=== PATIENT | male | born 1980 | race Caucasian/White ===

== ENCOUNTER 2024-02-15 06:27 | Day surgery (SDC) | payer OTHER, SELFPAY ==
[2024-02-15 09:07] VITALS: BMI 46.7
[2024-02-15 09:08] VITALS: BMI 46.7
[2024-02-15 09:09] VITALS: BP 146/92
[2024-02-15 09:22] LABS: Glucose - Point of Care 147 mg/dl (70-99)
[2024-02-15 10:20] VITALS: BP 148/89
[2024-02-15 10:35] VITALS: BP 145/96
== END 2024-02-15 10:55 | disposition home or self-care (01) ==
LOC: SDS 06:27
PROVIDERS: ATTENDING PHYSICIAN Internal Medicine Gastroenterology; FAMILY PHYSICIAN Internal Medicine
DX: K50.10 Crohn's disease of large intestine without complications (principal); K52.9 Noninfective gastroenteritis and colitis, unspecified; K57.30 Diverticulosis of large intestine without perforation or abscess without bleeding; R60.9 Edema, unspecified; K60.3 Anal fistula; Z98.0 Intestinal bypass and anastomosis status
CPT/HCPCS: 45380; 88305; 82962

== ENCOUNTER 2024-11-11 19:09 | Inpatient (IN) | payer BC, SELFPAY ==
[2024-11-11 11:56] VITALS: BP 202/113
[2024-11-11 12:19] VITALS: BP 173/87
[2024-11-11 13:22] VITALS: BMI 45.4
[2024-11-11 13:41] LABS: Urine Albumin 2+ (Neg - Trace); Urine Bilirubin Negative (Negative); Urine Character Clear (Clear); Urine Color Yellow; Urine Glucose 4+ (Negative); Urine Ketone 1+ (Negative); Urine Leukocyte 1+ (Negative); Urine Nitrite Negative (Negative); Urine Occult Blood Negative (Negative); Urine Specific Gravity 1.015 (<1.030); Urine Urobilinogen 1+ (Neg - 1+)
[2024-11-11 13:48] VITALS: BP 170/88
[2024-11-11] MEDS: DILAUDID 0.5 MG IV ×3 (13:48→21:59)
[2024-11-11 13:49] LABS: % Basophils 0.7 % (0-2); % Eosinophils 1.9 % (0-6); % Immature Granulocytes 0.4 % (0-0.5); % Lymphocytes 12.4 % (20.5-51.1); % Monocytes 6.7 % (1.7-9.3); % Neutrophils 77.9 % (42.2-75.2); Absolute Eosinophils 0.1 10^3/uL (0-0.7); Absolute Lymphocytes 0.3 10^3/uL (1.2-3.4); Absolute Monocytes 0.2 10^3/uL (0.1-0.6); Absolute Neutrophils 2.1 10^3/uL (1.4-6.5); Hematocrit 41.2 % (39.0-52.0); Hemoglobin 13.8 g/dL (13.0-18.0); Mean Corp Hgb Conc. 33.5 g/dL (33.0-37.0); Mean Corpuscular Hgb 29.5 pg (27.0-31.0); Mean Platelet Volume 9.3 fL (7.4-10.4); Nucleated Red Blood Cells % 0 % (-); Platelet Count 130 10^3/uL (130-400); Red Blood Cell Count 4.68 10^6/uL (4.70-6.10); Red Cell Dist. Width 13.3 % (11.5-14.5); White Blood Cell Count 2.7 10^3/uL (4.8-10.8)
[2024-11-11 13:54] LABS: Lactic Acid 1.2 mmol/L (0.7-2.0)
[2024-11-11 13:56] LABS: ALT (SGPT) 112 U/L (0-50); AST (SGOT) 132 U/L (17-59); Albumin 3.4 g/dl (3.5-5.0); Alkaline Phosphatase 81 U/L (38-126); Blood Urea Nitrogen 7 mg/dl (9-20); Calcium 8.6 mg/dl (8.4-10.2); Carbon Dioxide 27 mmol/L (22-30); Chloride 105 mmol/L (98-107); Estimated Creatinine Clearance > 125 ml/min; Glucose 289 mg/dl (70-99); Potassium 3.5 mmol/L (3.5-5.1); Sodium 136 mmol/L (135-145); Total Bilirubin 0.7 mg/dl (0.2-1.3); Total Protein 6.4 g/dl (6.3-8.2); eGFR > 60.00
[2024-11-11 14:00] VITALS: BP 157/84
[2024-11-11 14:00] LABS: COVID-19 Antigen Negative (Negative)
[2024-11-11 14:16] LABS: Lipase 61 U/L (23-300)
[2024-11-11 14:44] LABS: Urine Granular Cast 0-2 /LPF (0); Urine Hyaline Cast 0-2 /LPF (0-2); Urine Mucus Moderate; Urine Squamous Cell >30 /LPF (Few)
[2024-11-11 14:45] LABS: Urine Bacteria Moderate (Negative); Urine Red Blood Cell None Seen /HPF (0-2); Urine White Cell 0-2 /HPF (0-5)
--- NOTE | 2024-11-11 14:54 | ED.GENMED ---
History of Present Illness
General
Chief Complaint: Fever
Time Seen by Provider: 11/11/24 12:46
History of Present Illness
History of Present Illness:
44-year-old male with history of Crohn's disease on Humira presents to the emergency department for evaluation of fevers and shaking chills for the past 2 days. He states that late last week he developed rectal pain and discharge and was started on
Cipro and Flagyl by his prison officer. He was taking his medications and has been on this for 5 days however developed fever and shaking chills last night. He reports rectal and abdominal pain. No chest pain or shortness of breath. No URI
symptoms or coughing. Denies dysuria
Review of Systems
Review of Systems
Allergies reviewed?: Yes
All Other Systems: ROS reviewed and negative except as documented in HPI and ROS
Phy Exam
Physical Exam
Physical Exam:
GEN: Well appearing, NAD, WDWN
HEENT: Oral mucosa moist, no scleral icterus
Cardiac: Regular rate
Lung: No respiratory distress, no tachypnea
Rectal: No obvious perianal abscess or discharge
MSK: No gross deformity or injuries
Skin: Good color, no pallor or jaundice, no rashes
Neuro: AO x3, moves all extremities freely
Psych: Calm, cooperative
Sepsis
Sepsis Screening
Sepsis Assessment: Sepsis Ruled Out
Sepsis Screen
Sepsis Screen: Sepsis Ruled Out
Date: 11/11/24
Time: 14:56
Course
Orders/Labs/Results
Orders:
Orders
11/11/24 12:56
CT Abd/Pel (IV only)-[facility] only Urgent
Comment:
Reason For Exam: fever, Crohn's, anal discharge
11/11/24 13:23
COVID-19 Antigen Urgent
Source: Nasal Swab
CRP [C-Reactive Protein] Urgent
Complete Blood Count/With Diff Urgent
Comprehensive Metabolic Panel Urgent
Lactic Acid Q4H
Comment: CANCEL 2nd LACTIC ACID IF 1st LACTIC ACID IS LESS THAN 2
Lipase Urgent
Comment: ADD ON
Blood Culture Q30M
JENNIE Source: Blood/Venous
Specimen Description:
Blood Culture Q30M
JENNIE Source: Blood/Venous
Specimen Description:
11/11/24 13:30
Urinalysis Reflex To Culture Urgent
Date Specimen was Collected: 11/11/24
Time Specimen was Collected: 13:29
Urine Microscopic Reflex Cult Urgent
Urine Culture Urgent
JENNIE Source: U
Specimen Description:
Date Specimen was Collected: 11/11/24
Time Specimen was Collected: 13:29
11/11/24 13:46
HYDROmorphone [Dilaudid] 0.5 mg .ROUTE .STK-MED ONE
HYDROmorphone [Dilaudid] 0.5 mg IV NOW STA
11/11/24 14:05
Add On- LAB Urgent
Tests Added?: lipase
11/11/24 17:00
Lactic Acid Q4H
Comment: CANCEL 2nd LACTIC ACID IF 1st LACTIC ACID IS LESS THAN 2
Abnormal Lab Results
11/11/24 11/11/24
13:23 13:30
WBC 2.7 L 10^3/uL
(4.8-10.8)
RBC 4.68 L 10^6/uL
(4.70-6.10)
Absolute Lymphs (auto) 0.3 L 10^3/uL
(1.2-3.4)
Neutrophils % 77.9 H %
(42.2-75.2)
Lymphocytes % 12.4 L %
(20.5-51.1)
BUN 7 L mg/dl
(9-20)
Glucose 289 H mg/dl
(70-99)
AST 132 H U/L
(17-59)
ALT 112 H U/L
(0-50)
C-Reactive Protein 23.10 H mg/L
(0.0-10.00)
Albumin 3.4 L g/dl
(3.5-5.0)
Urine Ketones 1+ A
(Negative)
Leukocyte Esterase Rfl 1+ A
(Negative)
Urine Bacteria (Reflex) Moderate A
(Negative)
Urine Glucose 4+ A
(Negative)
Urine Albumin (Reflex) 2+ A
(Neg - Trace)
11/11/24 13:23
11/11/24 13:23
Vital Signs
Initial and Last Documented VS:
Initial Vital Signs
Temp Pulse Resp BP Pulse Ox
98.1 F 86 18 202/113 98
11/11/24 11:56 11/11/24 11:56 11/11/24 11:56 11/11/24 11:56 11/11/24 11:56
Last Documented Vital Signs
Temp Pulse Resp BP Pulse Ox
98.1 F 73 18 157/84 98
11/11/24 11:56 11/11/24 14:30 11/11/24 12:45 11/11/24 14:00 11/11/24 11:56
MDM/Problems Addressed
MDM/Problems Addressed:
Labs are unremarkable, cultures pending. Anticipate imaging will reveal some complication that will require admission for IV antibiotics. Signed out to Manuel Patterson PA-C pending imaging
*Critical Care Note
Total Time (30-74mins, 75-104mins- exclusive of procedures): Not Applicable
ED Attending Note
-
Portions of this chart may have been created with voice recognition software.� Occasional wrong word or��sound alike� substitutions may have occurred due to the inherent limitations of voice recognition software.
Discharge Plan
Departure
Prescriptions:
No Action
losartan 50 mg Tablet
50 mg PO DAILY
amlodipine 10 mg Tablet
metformin 1,000 mg Tablet
1,000 mg PO BID
Stelara 90 mg/mL Syringe
90 mg SC Q4W
Sutab 1.479-0.188- 0.225 gram Tablet
PO
Referrals:
Rodger Perez MD [Family Provider, Internal Medicine]
Interventions
Interventions:
*Risk Screen - Suicide Last Done: 11/11/24 11:56
*General Assessment Last Done: 11/11/24 12:49
*Neglect/Abuse Screening Last Done: 11/11/24 11:56
*ED- Fall Risk Assessment Last Done: 11/11/24 12:49
*ED COVID-19 Vaccine History Last Done: 11/11/24 12:49
ED- Neurological Assessment Last Done: 11/11/24 12:49
ED-Skin Assessment Last Done: 11/11/24 12:49
Discharge Date and Time
Print Language: TELUGU
[2024-11-11 15:00] VITALS: BP 162/75
--- NOTE | 2024-11-11 16:14 | ED.GENMED ---
History of Present Illness
General
Chief Complaint: Fever
Time Seen by Provider: 11/11/24 12:46
Course
Orders/Labs/Results
Orders:
Orders
11/11/24 12:56
CT Abd/Pel (IV only)-[facility] only Urgent
Comment:
Reason For Exam: fever, Crohn's, anal discharge
11/11/24 13:23
COVID-19 Antigen Urgent
Source: Nasal Swab
CRP [C-Reactive Protein] Urgent
Complete Blood Count/With Diff Urgent
Comprehensive Metabolic Panel Urgent
Lactic Acid Q4H
Comment: CANCEL 2nd LACTIC ACID IF 1st LACTIC ACID IS LESS THAN 2
Lipase Urgent
Comment: ADD ON
Blood Culture Q30M
JENNIE Source: Blood/Venous
Specimen Description:
Blood Culture Q30M
JENNIE Source: Blood/Venous
Specimen Description:
11/11/24 13:30
Urinalysis Reflex To Culture Urgent
Date Specimen was Collected: 11/11/24
Time Specimen was Collected: 13:29
Urine Microscopic Reflex Cult Urgent
Urine Culture Urgent
JENNIE Source: U
Specimen Description:
Date Specimen was Collected: 11/11/24
Time Specimen was Collected: 13:29
11/11/24 13:46
HYDROmorphone [Dilaudid] 0.5 mg .ROUTE .STK-MED ONE
HYDROmorphone [Dilaudid] 0.5 mg IV NOW STA
11/11/24 14:05
Add On- LAB Urgent
Tests Added?: lipase
11/11/24 Dinner
Clear Liquid
At Your Request: Full Participation
Does patient need a safe tray?: No
11/11/24 15:57
HYDROmorphone [Dilaudid] 0.5 mg IV NOW STA
11/11/24 17:09
Code Status As Directed
Resuscitation Status: Full Code
Notify MD As Directed
Notify physician if: Bridge Admission orders placed.
Notify attending physician:
-- upon arrival to unit
OR
-- when patient is identified as an ED hold
Pneumatic Compression Sleeves As Directed
Type: Knee high
Vital Signs As Directed
Frequency: Per unit guidelines
O2 Therapy [RESP] Routine
Titrate/Wean O2 to maintain O2 sat greater than (%): 92
11/11/24 17:10
DX Deep Vein Thrombosis Video Routine
11/11/24 18:54
Admit/Transfer Patient As Directed
Co-Sign Provider:
Level of Care: Inpatient admission
Assign to:: Medical/Surgical
Physician / Group: Hospitalists
Diagnosis: Lower GI bleed
Reason for Hospitalization: Lower GI bleed
Expected length of stay greater than two midnights?: Yes
ELOS- Estimated Length of Stay in days: 2
I certify the patient meets the requirements for IP care: Yes
PRN Pain Medication Management As Directed
May give lesser potent ordered pain med per pt: Yes
preference::
Protocol:: Medication orders for pain may be administered in a
manner that supports deferring to patient preference
when the pt is:
- Requesting an ordered lesser potent pain medication.
Least to most potent pain medications are defined
as: acetaminophen < NSAID < tramadol < opioids
(morphine, oxycodone, hydromorphone).
- Requesting a lesser dose of the same medication IF
ORDERED.
- Requesting a less intrusive route of administration
if both routes are prescribed by the provider (PO <
IV).
11/11/24 19:06
GASTROINTESTINAL CONSULT Routine
Consulting Provider: Teresa Thomas
Was physician already notified: Yes
11/11/24 19:15
0.9% Sodium Chloride 1000 ml [Nss] 1,000 ml IV 100 mls/hr
11/11/24 20:09
Acetaminophen [Tylenol] 650 mg PO TIDPRN PRN mild pain/fever
11/12/24 08:00
Amlodipine [Norvasc] 10 mg PO DAILY
Losartan [Cozaar] 25 mg PO DAILY
Abnormal Lab Results
11/11/24 11/11/24
13:23 13:30
WBC 2.7 L 10^3/uL
(4.8-10.8)
RBC 4.68 L 10^6/uL
(4.70-6.10)
Absolute Lymphs (auto) 0.3 L 10^3/uL
(1.2-3.4)
Neutrophils % 77.9 H %
(42.2-75.2)
Lymphocytes % 12.4 L %
(20.5-51.1)
BUN 7 L mg/dl
(9-20)
Glucose 289 H mg/dl
(70-99)
AST 132 H U/L
(17-59)
ALT 112 H U/L
(0-50)
C-Reactive Protein 23.10 H mg/L
(0.0-10.00)
Albumin 3.4 L g/dl
(3.5-5.0)
Urine Ketones 1+ A
(Negative)
Leukocyte Esterase Rfl 1+ A
(Negative)
Urine Bacteria (Reflex) Moderate A
(Negative)
Urine Glucose 4+ A
(Negative)
Urine Albumin (Reflex) 2+ A
(Neg - Trace)
11/11/24 13:23
11/11/24 13:23
Vital Signs
Initial and Last Documented VS:
Initial Vital Signs
Temp Pulse Resp BP Pulse Ox
98.1 F 86 18 202/113 98
11/11/24 11:56 11/11/24 11:56 11/11/24 11:56 11/11/24 11:56 11/11/24 11:56
Last Documented Vital Signs
Temp Pulse Resp BP Pulse Ox
98.4 F 85 16 162/75 98
11/11/24 20:25 11/11/24 20:25 11/11/24 20:25 11/11/24 15:00 11/11/24 20:25
Patient Management
Discussion with other providers: Hospitalist
Escalation/DeEscalation of care consider admission/obs:
3 PM - Patient received in signout pending CT scan results. CT scan ultimately shows no acute abnormalities. There was an incidental finding of a 1.7 cm indeterminate left adrenal nodule which will need further evaluation as an outpatient.
Patient provided with a printout of this report. Given his immunocompromise status combined with the fevers and continued pain despite IV pain medication administration we will plan to admit to hospitalist service. GI team can be consulted as
needed. Hospitalist team accepts for continued evaluation and treatment
ED Attending Note
-
Portions of this chart may have been created with voice recognition software.� Occasional wrong word or��sound alike� substitutions may have occurred due to the inherent limitations of voice recognition software.
Discharge Plan
Departure
Patient Disposition: Admit
Date of Disposition: 11/11/24
Time of Disposition: 16:14
Presentation/result/management discussed w/ accepting MD/DO: Hospitalist
Discharge Problem:
Fever, Abdominal pain
Interventions
Interventions:
*Risk Screen - Suicide Last Done: 11/11/24 11:56
*General Assessment Last Done: 11/11/24 12:49
*Neglect/Abuse Screening Last Done: 11/11/24 11:56
*ED- Fall Risk Assessment Last Done: 11/11/24 12:49
*ED COVID-19 Vaccine History Last Done: 11/11/24 12:49
*Nursing Disposition Last Done: 11/11/24 19:57
ED- Neurological Assessment Last Done: 11/11/24 12:49
ED-Skin Assessment Last Done: 11/11/24 12:49
Discharge Date and Time
Discharge Date/Time: 11/11/24 19:57
--- NOTE | 2024-11-11 19:10 | HPS.HSE ---
Addendum entered and electronically signed by Maryam Corey MD 11/11/24 21:10:
I personally performed a history and physical exam of the patient and discussed management with the resident. I reviewed the resident's note and agree with the documented findings and plan of care HPI/CC.
GENERAL: well developed, well nourished, obese male in no apparent distress
HEENT:NC/AT--moist mucus membranes
HEART: regular rate and rhythm, +S1, +S2
LUNGS : clear to auscultation bilaterally
ABDOM: soft, nontender, nondistended, + bowel sounds
EXT: no cyanosis, clubbing, or edema--with venous stasis changes
NEUROLOGIC: grossly intact
: perianal area inside buttocks with small lesions, wet appearing and clear ooze
Abdominal pain/fever with Lower GI bleeding (not septic)--History of Crohn's--possibly due to acute flare of Crohn's, infection, fistula/fissures, diverticulitis and less likely hemorrhoids or gastroenteritis--ADMIT--CRP elevated but not
significantly--consult GI--change cipro/flagyl to IV zosyn--IVF, clears--need CT scan with ORAL contrast in AM--stool studies including C. diff--hold stelara
Leukopenia--WBC�2.7--immunosuppressed from stelara--trend WBC
Elevated transaminases--Likely due to combination of fatty liver plus medication induced�Stelara/metformin--follow
hyperglycemia--pt on metformin for prediabetes--check HGB O7O--izdl need diet modification--hold metformin due to IV contrast given for CT scan
Essential HTN -- cont norvasc and losartan
bilateral LE edema--possibly from high dose norvasc--follow
DVT proph-�SCDs
code status-Full code
Original Note:
Family Physician
-
Family Physician: Rodger Perez
Chief Complaint
-
Bleeding per rectum, rectal pain
History of Present Illness
44-year-old male with past medical history of hypertension, prediabetes, Crohn's (diagnosed in 2018) with 2 perianal surgeries for fistulas, bowel resection for diverticulitis presents with bleeding per rectum and rectal pain, fevers/chills from
the past 2 days. Patient reports that he was having some purulent drainage from the anus and bleeding, abdominal pain since 6 days and he saw Dr. Rivera as outpatient, who started him on metronidazole and ciprofloxacin. Bleeding and pain has
improved, but the patient had fevers in the past 2 days, associated with intermittent nausea but no vomiting. Patient has been taking Tylenol for fevers. No history of diarrhea/constipation, sick contacts, change in the dietary habits, no chest
pain/sob, dysuria. Reports having mild headache early in the morning today.
Medical History
Past Medical History
Past Medical History: Reports HTN
Additional Past Medical History:
Prediabetes
Past Surgical History: Reports Bowel Resection
Additional Past Surgical History:
Hernia repair, bowel resection for diverticulitis,
Social History
Tobacco: Non-smoker
Alcohol: Occasional
Drug: Other (THC drops)
Personal:
Living: With Family
Employment: Employed
Family History
Family History: Other (Mother-diverticulitis, IBS maternal grandmother-diverticulitis)
Allergies / Home Medications
Allergies reflects when Allergies were last updated in [facility].
Home Medications with original date entered in [facility]
Allergy/Medication List:
Allergies
Allergy/AdvReac Type Severity Reaction Status Date / Time
morphine Allergy Intermediate Hives Verified 02/15/24 09:01
Home Medications
amlodipine 10 mg tablet 10 mg PO DAILY 02/15/24
ustekinumab 90 mg/mL subcutaneous syringe (Stelara) 90 mg SC Q4W 02/15/24
acetaminophen 325 mg tablet (Tylenol) 650 mg PO TIDPRN PRN mild pain/fever 11/11/24
ciprofloxacin HCl 500 mg tablet 500 mg PO Q12H 11/11/24
losartan 25 mg tablet 25 mg PO DAILY 11/11/24
metronidazole 500 mg tablet 500 mg PO TID 11/11/24
Metformin 500 mg, once daily
Review of Systems
-
A 12 point ROS was completed and negative except as noted: Yes
Physical Exam
Vital Signs
Vital Signs
Temp Pulse Resp BP Pulse Ox
98.1 F 80 18 162/75 98
11/11/24 11:56 11/11/24 16:45 11/11/24 12:45 11/11/24 15:00 11/11/24 11:56
Physical Exam
General: Morbidly Obese
HEENT: NormoCephalic, Anicteric, Moist mucous membranes and Atraumatic
Respiratory: Clear
Cardiac: S1/S2 and Regular Rhythm
GI: Soft, Non Tender, Normal Bowel Sounds and Other (Midline vertical scar from prior surgery)
Rectal: Hem Positive and Other (Discharge)
Musculoskeletal: Other (Lower extremity discoloration bilaterally, nonpitting edema)
Skin: Warm and Dry
Neuro: Awake, Alert, Oriented and AO x 3
Psych: Calm
Laboratory Results
-
11/11/24 13:23
11/11/24 13:23
Laboratory Results
Lactic Acid Cancelled 11/11/24 17:00
Total Bilirubin 0.7 mg/dl (0.2-1.3) 11/11/24 13:23
AST 132 U/L (17-59) H 11/11/24 13:23
ALT 112 U/L (0-50) H 11/11/24 13:23
Alkaline Phosphatase 81 U/L (38-126) 11/11/24 13:23
Lipase 61 U/L (23-300) 11/11/24 13:23
Impression/Plan
-
IMPRESSION:
44-year-old male with history of Crohn's disease presenting with bleeding and discharge per rectum.
PLAN:
#Lower GI bleeding
#History of fevers
#History of Crohn's
Likely due to acute flare of Crohn's or infection from the fistulous tract or anal fissures or hemorrhoids or diverticulitis or gastroenteritis (although less likely on differential)
Patient does not appear septic clinically, also sepsis criteria not met at presentation
Patient is afebrile, WBC�2.7
Start IV Zosyn
Start IV fluids
Start on clear liquids
Will trend hemoglobin, currently at 13.8
GI consult
Will do CT with peroral contrast
Will check stool studies
Will check C. difficile
Hold Stelara
Hold NSAIDs
#Leukopenia
WBC�2.7
Likely related to chronic immunosuppression since diagnosis of Crohn's (was on Humira before, currently on Stelara)
Will hold Stelara for now
Will trend WBC, monitor fever curve
Will monitor clinically
If required, will consider ID consult
#Elevated transaminases
Likely due to fatty liver or medication induced�Stelara/metformin
CT evidence of hepatosplenomegaly due to fatty liver
Will monitor for now
#Elevated blood glucose
Patient has history of prediabetes, currently on metformin
Will hold metformin
We will start SSI
Will check HbA1c
Diet�full liquids
DVT prophylaxis�SCDs
Full code
[2024-11-11 20:25] VITALS: BMI 46.0
[2024-11-11 21:27] LABS: Glucose - Point of Care 170 mg/dl (70-99)
[2024-11-11 21:30] VITALS: BP 185/100
[2024-11-11] MEDS: ZOSYN 50 IV (21:38)
[2024-11-11] MEDS: NSS 1000 IV (21:38)
[2024-11-12] VITALS (14 sets, daily range): BP systolic 126–190; BP diastolic 72–100
[2024-11-12] MEDS: ZOSYN IV (04:42)
--- NOTE | 2024-11-12 06:37 | CON.GI ---
Addendum entered and electronically signed by Teresa Thomas MD 11/12/24 15:46:
D/w Dr. Nguyen outpatient doc
Addendum entered and electronically signed by Teresa Thomas MD 11/12/24 15:45:
Goal level 10 for IFX with fisutlizing dz
Addendum entered and electronically signed by Teresa Thomas MD 11/12/24 15:42:
The patient was seen and examined by me independently in collaboration with the nurse practitioner.
Past medical history/social history/medications/allergies/family history reviewed.
Lab data and imaging data reviewed.
44-year-old male distant history of diverticulitis with colon resection and diverting ileostomy in 2008 with reversal and ultimately diagnosed with Crohn's in 2018 with fistulizing disease with seton placement x [address] Wolf at [facility]. He was placed on Humira initially but developed antibodies and then was switched to Stelara. He required dose escalation of Stelara and he did notice increased symptoms a few days prior to Stelara. His most recent colonoscopy with
Miguel was January 2024 which showed perianal edema and erythema, small fistulous opening, no obvious abscess on perianal exam, patent anastomosis colocolonic, diverticulosis, inflammation from the rectum to sigmoid anastomosis moderate in
severity improved from prior, pathology showed benign lymphoid aggregates. No active inflammation seen.
Patient called on Sunday with diffuse bleeding. He reached out to Dr. Rivera who placed him on Cipro and Flagyl. Patient felt better and the bleeding decreased however on Sunday night he developed a fever which persisted on Sunday up to 102.
He states his bowel movements are regular with no diarrhea, no abdominal pain. He also has drainage to the area.
This seems to be related to his underlying perianal disease, possible abscess. I was present for Dr. Ruff's rectal exam and he did not appreciate any abscesses. He did have a fistulous opening. He underwent a CT scan here which showed fatty
liver, adrenal nodule, left renal calculus, superficial fatty soft tissue of the anus and perineum suggesting likely inflammatory infectious process. Plan was to get an MR pelvis for further evaluation but unfortunately patient due to body habitus
was unable to get this done.
Discussed with Dr. Ruff. Plan to do exam under anesthesia today. Could consider EUS in future if necessary with Dr. Clark or Dr. Arreguin.
Continue antibiotics. Ultimately, I think the patient would benefit from switching to Remicade which I discussed with him today. Remicade is the only biologic with data for fistulizing disease. Goal would be levels of 10. He does have a history
of antibodies and options include combination therapy with amino modulator and peeling off after 6 to 12 months versus close monitoring of levels and antibodies. The potential risks of Remicade (infliximab) therapy were discussed with the patient
including risks of infection including tuberculosis, fungal infections like histoplasmosis, and others.
We additionally reviewed the risks of infusion reactions including immediate ones that might include shortness of breath and hives, and that these are usually treated with slowing down the rate of infusion and giving more IV fluid; sometimes,
antihistamines are used, and rarely, corticosteroids are needed. Delayed infusion reactions with fevers and joint aches, and/or rashes were also discussed occurring 1-10 days after an infusion.
Additionally, the potential risk for changes in blood counts and liver chemistries were mentioned, as were the uncommon multiple sclerosis-like reactions, approximately 90% of which resolve after cessation of the drug.
Finally, the risk of blood cancers including lymphoma and rare lymphomas such as hepatosplenic T-cell lymphomas were discussed.
I will order hepatitis studies, QuantiFERON TPMT enzyme in preparation for [facility] outpatient. Patient follows with Dr. Nguyen.
Seems to be more perianal dz then Crohn's flare driving picture and with fevers would hold at steroids at this point.
Original Note:
Consultation
-
Date/Time Consultation Requested: 11/11/241929
Date/Time Consultation Performed: 11/12/24 0800
Requesting Provider: Kayleen Spivey MD
Performing Provider: RONI Troncoso, Joanne Thomas MD
Reason for Consultation: GI bleed
Medical History
Chief Complaint / HPI
History of Present Illness:
Pt is a 44yo with hx HTN, NIDDM, diverticulitis with prior diversion ileostomy and resection 2008 prior hernia repair and crohn's disease diagnosed 2018 with perianal fistulizing disease and prior setons x [address] Wolf at [place]. He has been
on Humira with development of antibodies in past but started Stelara about 2 years ago with dose escalation a few months ago to every 4 weeks. He has been in touch with Dr. Nguyen over last week with increased rectal pain, discharge and
bleeding from fistula and was started on antibiotics with Cipro and Flagyl. He initially was only taking Cipro then added Flagyl but still with fever and rectal pain and directed to ER. On admission noted with WBC 2.7, hbg 13.8, hct 41.2,
platelets 130, glucose 289, bili 0.7, AST 132, ALT 112, alk phos 81, albumin 3.4, CRP 23.1, and moderate bacteria on UA. Ct was completed with [facility] with fatty liver, non obst renal calculus, Unremarkable appendix. Limited evaluation of intestinal
tract, particularly in light of patient history of Crohn's disease, without oral contrast. No intestinal obstruction, free air or gross focal area intestinal inflammatory changes. On the basis of this study, acute inflammatory process of the
intestinal tract cannot be excluded. On admission pt started on IV Zosyn .
At this time pt related larger volume of blood last week less this week with otherwise formed stools. He otherwise admits to rectal pain worse with exam. He has some nausea without vomiting on the weekend. He denies odynophagia, dysphagia,
GERD, abdominal pain, or black stools.
01/2024- colonoscopy Wendy - good prep - Perianal edema/erythema, with small fistulous opening, no obvious abscess. found on perianal exam.
- Patent end-to-side colo-colonic anastomosis, characterized by healthy appearing mucosa- Diverticulosis in the descending colon.
- Inflammation was found from the rectum to the sigmoid colon anastomosis. This was moderate in
severity, improved compared to previous examinations. Biopsied.
Past Medical History
Past Medical History: HTN, NIDDM and Other (crohns)
Past Surgical History: Bowel Resection (for diverticular disease in 2009 with diversion ostomy then reversal), Orthopedic (back surgery x 3 with hx fall) and Other (hernia repair, prior seton placement with Dr. Wolf at [facility] )
Social History
Tobacco: Non-Smoker
Alcohol: Occasional (admits to 6-9 beers at times )
Drug: None
Personal:
Living: With Family
Employment: Employed
Family History
Family History: Other (mother diverticulitis, IBS, GM diverticulitis )
Allergies / Home Medications
Allergy/AdvReac Type Severity Reaction Status Date / Time
morphine Allergy Intermediate Hives Verified 02/15/24 09:01
�Medication �Instructions �Recorded
amlodipine 10 mg tablet 10 mg PO DAILY 02/15/24
ustekinumab 90 mg/mL subcutaneous 90 mg SC Q4W 02/15/24
syringe (Stelara)
acetaminophen 325 mg tablet 650 mg PO TIDPRN PRN mild 11/11/24
(Tylenol) pain/fever
ciprofloxacin HCl 500 mg tablet 500 mg PO Q12H 11/11/24
losartan 25 mg tablet 25 mg PO DAILY 11/11/24
metronidazole 500 mg tablet 500 mg PO TID 11/11/24
Review of Systems
-
History Source: Patient
Constitutional: Reports Fever
EENT: Reports No Symptoms
Respiratory: Reports No Symptoms
Cardiac: Reports No Symptoms
Abdomen/GI: Reports Bloody Stools and Other (rectal pain with leakage and increased drainage of red blood )
: Reports No Symptoms
Musculoskeletal: Reports Edema
Skin: Reports No Symptoms
Neurological: Reports Weakness
Endocrine: Reports No Symptoms
Hematologic/Lymphatic: Reports Bleeding
Vital Signs
Temp Pulse Resp BP Pulse Ox
98.4 F 85 16 178/92 98
11/11/24 20:25 11/11/24 20:25 11/11/24 20:25 11/12/24 06:10 11/11/24 20:25
Physical Exam
Exam
General: Well Developed, Well Nourished and No Apparent Distress
HEENT: Normocephalic and Anicteric
Respiratory: Clear
Cardiac: Regular Rhythm
GI: Soft, Non Tender, Non Distended and Other (mid abdominal scar )
Rectal: Other (multiple fistulas tract and scarring. On trace with drainage and other area of purple discoloration -- ? collection of fluid, internal exam not completed with some pain on exam )
Musculoskeletal: No Clubbing and No Cyanosis
Skin: Warm and Dry
Neuro: Awake, Alert and AO x 3
Psych: Calm
Results
WBC 2.7 10^3/uL (4.8-10.8) L 11/11/24 13:23
Hgb 13.8 g/dL (13.0-18.0) 11/11/24 13:23
Hct 41.2 % (39.0-52.0) 11/11/24 13:23
MCV 88.0 fL (80.0-94.0) 11/11/24 13:23
Plt Count 130 10^3/uL (130-400) 11/11/24 13:23
Absolute Neuts (auto) 2.1 10^3/uL (1.4-6.5) 11/11/24 13:23
Sodium 136 mmol/L (135-145) 11/11/24 13:23
Potassium 3.5 mmol/L (3.5-5.1) 11/11/24 13:23
Chloride 105 mmol/L (98-107) 11/11/24 13:23
Carbon Dioxide 27 mmol/L (22-30) 11/11/24 13:23
BUN 7 mg/dl (9-20) L 11/11/24 13:23
Creatinine 0.7 mg/dL (0.7-1.3) 11/11/24 13:23
Calcium 8.6 mg/dl (8.4-10.2) 11/11/24 13:23
Total Bilirubin 0.7 mg/dl (0.2-1.3) 11/11/24 13:23
AST 132 U/L (17-59) H 11/11/24 13:23
ALT 112 U/L (0-50) H 11/11/24 13:23
Alkaline Phosphatase 81 U/L (38-126) 11/11/24 13:23
Lipase 61 U/L (23-300) 11/11/24 13:23
Diagnostic Image Results:
11/11/24 CT Abd/Pel (IV only)-DH only
Hepatosplenomegaly with diffuse fatty liver.
Small nonobstructing left renal calculus. Symmetric renal excretion.
Approximate 1.7 cm INDETERMINATE left adrenal nodule of approximately 60 Hounsfield unit density. Is there a prior outside CT to confirm stability? If not, Abdomen CT without and with intravenous contrast or Abdominal MRI recommended for more
complete evaluation as an malignant lesion cannot be excluded.
01/2024- ning - good prep - Perianal edema/erythema, with small fistulous opening, no obvious abscess. found on perianal exam.
- Patent end-to-side colo-colonic anastomosis, characterized by healthy appearing mucosa- Diverticulosis in the descending colon.
- Inflammation was found from the rectum to the sigmoid colon anastomosis. This was moderate in
severity, improved compared to previous examinations. Biopsied.
Prior GI Procedures:
EGD: none on chart
Colonoscopy:
01/2024- [facility] - good prep - Perianal edema/erythema, with small fistulous opening, no obvious abscess. found on perianal exam.
- Patent end-to-side colo-colonic anastomosis, characterized by healthy appearing mucosa- Diverticulosis in the descending colon.
- Inflammation was found from the rectum to the sigmoid colon anastomosis. This was moderate in
severity, improved compared to previous examinations. Biopsied.
Assessment / Plan
-
Pt is a 44yo with hx HTN, NIDDM, diverticulitis with prior diversion ileostomy and resection 2008 prior hernia repair and crohn's disease diagnosed 2018 with perianal fistulizing disease and prior setons x [address] Wolf at [place]. He has been
on Humira with development of antibodies in past but started Stelara about 2 years ago with dose escalation a few months ago to every 4 weeks. He has been in touch with Dr. Nguyen over last week with increased rectal pain, discharge and
bleeding from fistula and was started on antibiotics with Cipro and Flagyl. He initially was only taking Cipro then added Flagyl but still with fever and rectal pain and directed to ER. On admission noted with WBC 2.7, hbg 13.8, hct 41.2,
platelets 130, glucose 289, bili 0.7, AST 132, ALT 112, alk phos 81, albumin 3.4, CRP 23.1, and moderate bacteria on UA. Ct was completed with [facility] with fatty liver, non obst renal calculus, Unremarkable appendix. Limited evaluation of intestinal
tract, particularly in light of patient history of Crohn's disease, without oral contrast. No intestinal obstruction, free air or gross focal area intestinal inflammatory changes. On the basis of this study, acute inflammatory process of the
intestinal tract cannot be excluded. On admission pt started on IV Zosyn .
01/2024- colonoscopy Wendy - good prep - Perianal edema/erythema, with small fistulous opening, no obvious abscess. found on perianal exam.
- Patent end-to-side colo-colonic anastomosis, characterized by healthy appearing mucosa- Diverticulosis in the descending colon.
- Inflammation was found from the rectum to the sigmoid colon anastomosis. This was moderate in
severity, improved compared to previous examinations. Biopsied.
-concern for rectal abscess with fever, rectal pain and increased drainage with area of discoloration and fluid on exam
-crohns with known fistulizing disease
-hx prior Dr. Wolf evherminio and seton placement 2018 ?
-mild CRP elevation prior to admission
-mild LFT elevation
-hx ileostomy with reversal for diverticular disease 2008
-hx ETOH use
-LE edema
-hypoalbuminemia
-mild thrombocytopenia
-hepatosplenomegaly/fatty liver on imaging
other med problems:
-HTN
-NIDDM
-diverticulosis
-prior hernia repair
PLAN:
etiology of symptoms with concern for underlying abscess with hx perianal fistulizing disease, vs other
rectal exam with noted several fistulas and scarring, one area with drainage and some discoloration with palpable fluid
CRP 23.1 will add fecal dihn
check stool studies
change CT to MR pelvis
cont IV Zosyn
clear diet
for colorectal consult to see if further intervention needed
pt has been in Stelara may need to consider switch to Remicade as reviewed with Dr. Nguyen
Pt counseled on ETOH use
trend LFT's- may be fatty liver, infection vs other related -- may have some underlying liver disease with mild thrombocytopenia, hypoalbuminemia, and LE edema
OP follow up for fatty liver
reviewed with hospitalist team via tiger text
-
-
Thank you for consultation and allowing me to participate in the patient's care. Please call the national sales consultant GI physician during the after hours with any questions or concerns.
[2024-11-12] MEDS: DILAUDID 0.5 MG IV ×4 (07:09→20:45)
[2024-11-12 07:24] LABS: Glucose - Point of Care 167 mg/dl (70-99)
[2024-11-12] MEDS: NSS 1000 IV ×2 (08:02→18:19)
[2024-11-12] MEDS: NOVOLOG FLEXPEN-LOW RESISTANCE 1 UNITS SC ×3 (08:02→18:23)
[2024-11-12] MEDS: COZAAR 25 MG PO (08:04)
[2024-11-12] MEDS: NORVASC 10 MG PO (08:04)
[2024-11-12] MEDS: ZOSYN 50 IV ×3 (08:05→20:42)
[2024-11-12 08:45] LABS: % Basophils 0.6 % (0-2); % Eosinophils 4.9 % (0-6); % Immature Granulocytes 0.3 % (0-0.5); % Lymphocytes 16.2 % (20.5-51.1); % Monocytes 11.6 % (1.7-9.3); % Neutrophils 66.4 % (42.2-75.2); Absolute Eosinophils 0.2 10^3/uL (0-0.7); Absolute Lymphocytes 0.5 10^3/uL (1.2-3.4); Absolute Monocytes 0.4 10^3/uL (0.1-0.6); Absolute Neutrophils 2.2 10^3/uL (1.4-6.5); Hematocrit 40.3 % (39.0-52.0); Hemoglobin 13.6 g/dL (13.0-18.0); Mean Corp Hgb Conc. 33.7 g/dL (33.0-37.0); Mean Corpuscular Hgb 29.4 pg (27.0-31.0); Mean Platelet Volume 9.3 fL (7.4-10.4); Nucleated Red Blood Cells % 0 % (-); Platelet Count 128 10^3/uL (130-400); Red Blood Cell Count 4.63 10^6/uL (4.70-6.10); Red Cell Dist. Width 13.2 % (11.5-14.5); White Blood Cell Count 3.3 10^3/uL (4.8-10.8)
[2024-11-12] MEDS: TYLENOL 650 MG PO (09:53)
[2024-11-12 10:53] LABS: ALT (SGPT) 115 U/L (0-50); AST (SGOT) 135 U/L (17-59); Albumin 3.2 g/dl (3.5-5.0); Alkaline Phosphatase 71 U/L (38-126); Blood Urea Nitrogen 6 mg/dl (9-20); Calcium 8.3 mg/dl (8.4-10.2); Carbon Dioxide 31 mmol/L (22-30); Chloride 103 mmol/L (98-107); Estimated Creatinine Clearance > 125 ml/min; Glucose 173 mg/dl (70-99); Potassium 3.5 mmol/L (3.5-5.1); Sodium 136 mmol/L (135-145); Total Bilirubin 0.7 mg/dl (0.2-1.3); Total Protein 6.4 g/dl (6.3-8.2); eGFR > 60.00
[2024-11-12 12:10] LABS: Glycohemoglobin (HgbA1c) 9.2 % (4.0-5.6)
[2024-11-12 12:42] LABS: Glucose - Point of Care 175 mg/dl (70-99)
--- NOTE | 2024-11-12 14:13 | W.PN.HOSP.TC ---
Addendum entered and electronically signed by Maryam Corey MD 11/12/24 19:15:
I saw and evaluated the patient independently. I reviewed the resident�s note and agree with findings and plan as documented by Dr. Spivey.
GENERAL: well developed, well nourished, obese male in no apparent distress--seen post op
HEENT:NC/AT--moist mucus membranes
HEART: regular rate and rhythm, +S1, +S2
LUNGS : clear to auscultation bilaterally
ABDOM: soft, nontender, nondistended, + bowel sounds
EXT: no cyanosis, clubbing, or edema--with venous stasis changes
NEUROLOGIC: grossly intact
: not examined post op
Abdominal pain/fever with Lower GI bleeding (not septic)--History of Crohn's--possibly due to acute flare of Crohn's with fistula--CRP elevated but not significantly--apprec GI/CRS--change cipro/flagyl to IV zosyn--IVF, clears--CT scan with ORAL
contrast changed to MRI per GI but too large for the MRI machine--taken to OR by CRS and had posterior anal ulcer debridement of perianal fistula--having formed stools so stool studies including C. diff no longer needed--hold stelara
Leukopenia--WBC�2.7--immunosuppressed from stelara--trend WBC
Elevated transaminases--Likely due to combination of fatty liver plus medication induced�Stelara/metformin--follow
type 2 DM with hyperglycemia--pt on metformin-- HGB A1C 9.2 (not prediabetes)--will need diet modification--hold metformin due to IV contrast given for CT scan--restart after 48H from IV contrast
Essential HTN -- cont norvasc and losartan
bilateral LE edema--possibly from high dose norvasc--follow
DVT proph-�SCDs
code status-Full code
Original Note:
Today's Communication/Plan
-
Colorectal plan exam under anesthesia for perianal disease
Continue IV Zosyn
Continue clears
Assessment / Plan
Assessment / Plan
IMPRESSION:
44-year-old male with history of Crohn's disease presenting with bleeding and discharge per rectum.
PLAN:
#Lower GI bleeding
#History of fevers
#History of Crohn's
Likely due to infection from the fistulous tract/Crohn's perianal disease with abscess or acute flare of Crohn's
gastroenteritis >>ruled out as patient had a formed stool >> will cancel stool studies
Patient does not appear septic clinically, also sepsis criteria not met at presentation
Patient is afebrile, WBC�2.7 >>3.3
Continue IV Zosyn
Continue IV fluids
Continue clear liquids
GI consulted
Plan for MRI pelvis for further evaluation, patient was not able to get this done due to body habitus
Case discussed with colorectal, as per GI�plan on examining under anesthesia.
Also consider starting on Remicade, biologic for fistulizing Crohn's disease.
Check hepatitis panel, QuantiFERON, TPMT enzyme
Will hold off on steroids for now (Crohn's flareup unlikely, as per colorectal)
Will trend hemoglobin, currently at 13.6
Hold Stelara
Hold NSAIDs
#Leukopenia
WBC�3.3
Likely related to chronic immunosuppression since diagnosis of Crohn's (was on Humira before, currently on Stelara)
Will hold Stelara for now
Will trend WBC, monitor fever curve
Will monitor clinically
If required, will consider ID consult
#Elevated transaminases
Likely due to fatty liver or medication induced�Stelara/metformin
CT evidence of hepatosplenomegaly due to fatty liver
Will monitor for now
#Elevated blood glucose
Patient has history of prediabetes, currently on metformin
Will hold metformin
We will start SSI
Will check HbA1c
#Essential hypertension
Continue amlodipine
Continue losartan
#Left adrenal nodule
Approximate 1.7 cm INDETERMINATE left adrenal nodule of approximately 60 Hounsfield unit density. Is there a prior outside CT to confirm stability? If not, Abdomen CT without and with intravenous contrast or Abdominal MRI recommended for more
complete evaluation as an malignant lesion cannot be excluded.
Advised to follow-up as outpatient
DVT prophylaxis�Lovenox subcu
Full code
Anticipated Discharge: 24 - 48 hours
Subjective/Interval History
-
Date of Service: November 12, 2024
Patient had a bowel movement�formed stool with streaks of blood. Does not report any nausea/vomiting. Still has rectal pain/pressure. No overnight fever/chills. No abdominal pain. Patient is able to tolerate clears.
Objective Data
-
Labs:
Laboratory Results
11/12/24
08:18
WBC 3.3 L
Hgb 13.6
Hct 40.3
Plt Count 128 L
Sodium 136
Potassium 3.5
Chloride 103
Carbon Dioxide 31 H
BUN 6 L
Creatinine 0.6 L
Glucose 173 H
Calcium 8.3 L
Total Bilirubin 0.7
AST 135 H
ALT 115 H
Alkaline Phosphatase 71
Vital Signs:
Vital Signs
Temp Pulse Resp BP Pulse Ox
98.1 F 77 16 135/84 96
11/12/24 07:20 11/12/24 08:04 11/12/24 07:20 11/12/24 08:04 11/12/24 07:20
I&O
11/11/24 11/12/24 11/13/24
06:59 06:59 06:59
Intake Total 360 / 360
Balance 360 / 360
Review of Systems
-
All other systems: Reviewed and negative (Except as mentioned above)
Physical Exam
-
General: No Apparent Distress and Morbidly Obese
HEENT: Normocephalic and Atraumatic
Respiratory: Clear to Auscultation
Cardiac: Regular Rhythm and S1/S2
GI: Soft, Nontender, Nondistended, Normal Bowel Sounds and Other (Vertical midline incisional scar)
Skin: Warm and Dry
Neuro: Awake, Alert, Oriented, AO x 3 and Nonfocal/Grossly Intact
Psych: Calm
--- NOTE | 2024-11-12 15:19 | CON.CRS ---
Consultation
-
Date/Time Consultation Requested: 11/12/2024,
Date/Time Consultation Performed: 11/12/2024,
Requesting Provider: Teresa Thomas MD
Performing Provider: Subhash Ruff MD
Reason for Consultation: perianal abscess
Medical History
-
Chief Complaint: rectal bleeding
History of Present Illness:
44 yo male with a past medical history of diverticulitis s/p resection with ileostomy and then s/p reversal, crohns disease with multiple fistulas (prior setons x [address] Wolf and then at [facility]), presents with rectal bleeding. He has been on
Humira in the past and then subsequently Sterlara. Recently he has had increased rectal pain, discharge and bleeding. He was started on flagyl and cipro. Given increasing rectal pain and fevers, he came to the ER. On admission, his WBC was 2.7. CT
A/P showed superficial fatty soft tissues of the anus/perineum, especially on the right suggesting an inflammatory/infectious process. Consider MRI for more complete evaluation as a tiny abscess cannot be entirely excluded. He was started on IV
antibiotics. An MRI was attempted today, but due to body habitus, it was unable to be performed. His last colonoscopy was by Dr. Nguyen in 2023 which showed perianal edema/erythema, with small fistulous opening, no obvious abscess. found on
perianal exam. Patent end-to-side colo-colonic anastomosis, characterized by healthy appearing mucosa.Diverticulosis in the descending colon. Inflammation was found from the rectum to the sigmoid colon anastamosis. This was moderate in severity,
improved compared to previous examinations. Given the CT findings, we have been consulted for further surgical opinion.
Past Medical History
Past Medical History: HTN, IDDM and Other (sleep apnea, crohns disease)
Past Surgical History: Other (diverticulitis with prior diversion ileostomy and resection 2008 and resection, prior seton placement with Dr. Wolf at [place] and then subsequently with Dr. Murray at [facility])
Social History
Tobacco: Non-Smoker
Alcohol: Occasional
Drug: None
Personal:
Living: With Family
Family History
Family History: Reviewed & Not Pertinent
Allergies / Home Medications
Allergy/AdvReac Type Severity Reaction Status Date / Time
morphine Allergy Intermediate Hives Verified 02/15/24 09:01
�Medication �Instructions �Recorded �Confirmed �Type
amlodipine 10 mg tablet 10 mg PO DAILY Blood Pressure 02/15/24 11/11/24 History
ustekinumab 90 mg/mL subcutaneous 90 mg SC Q4W Autoimmune Disorder 02/15/24 11/11/24 History
syringe (Stelara)
acetaminophen 325 mg tablet 650 mg PO TIDPRN PRN mild 11/11/24 11/11/24 History
(Tylenol) pain/fever
ciprofloxacin HCl 500 mg tablet 500 mg PO Q12H Infection 11/11/24 11/11/24 History
losartan 25 mg tablet 25 mg PO DAILY Blood Pressure 11/11/24 11/11/24 History
metronidazole 500 mg tablet 500 mg PO TID Infection 11/11/24 11/11/24 History
Review of Systems
-
History Source: Patient
Abdomen/GI: Bloody Stools and Other (rectal pain)
A 10 point review of systems was completed, and was negative except as per HPI.
Physical Exam
Vital Signs
Temp 98.1 F 11/12/24 07:20
Pulse 77 11/12/24 08:04
Resp Rate 16 11/12/24 07:20
Blood pressure 135/84 11/12/24 08:04
SaO2 96 11/12/24 07:20
11/11/24 11/12/24 11/13/24
06:59 06:59 06:59
Actual Weight 171.203 kg
Body Mass Index (BMI) 46.0
Lab Results / Allergies
11/12/24 08:18
11/12/24 08:18
WBC 3.3 10^3/uL (4.8-10.8) L 11/12/24 08:18
Hgb 13.6 g/dL (13.0-18.0) 11/12/24 08:18
Hct 40.3 % (39.0-52.0) 11/12/24 08:18
Plt Count 128 10^3/uL (130-400) L 11/12/24 08:18
Abs Immat Gran (auto) 0.0 10^3/uL (0-0.05) 11/12/24 08:18
Neutrophils % 66.4 % (42.2-75.2) 11/12/24 08:18
Allergy/AdvReac Type Severity Reaction Status Date / Time
morphine Allergy Intermediate Hives Verified 02/15/24 09:01
Physical Exam
General: Well Developed, Well Nourished and No Apparent Distress
Rectal: Other (multiple fistula tracks and scaring, left anterior pain on palpation)
Neuro: AO x 3
Data Reviewed
-
CT Scan: Image Personally Visualized and interpreted, Report Reviewed by me and Discussed with Patient
Labs: Labs Reviewed by me, Discussed with Physician and Discussed with Patient
Old Records: Requested
Assessment / Plan
-
Assessment: 44yo male with known crohns disease on stelara presents with rectal pain and bleeding, with possible perianal abscess
Plan:
-Unable to perform MRI due to body habitus
-Will take to the OR today for an EUA to further evaluate the perianal region
-Continue IV antibiotics
-Immunosuppressives per GI
-NPO for OR
--- NOTE | 2024-11-12 17:16 | CM ---
Patient at surgery when CM attempted to visit x2. CM will return to complete assessment.
[2024-11-12 17:26] LABS: Glucose - Point of Care 171 mg/dl (70-99)
--- NOTE | 2024-11-12 17:27 | W.IMMPOSTOP ---
Surgical Immed Post Op Note
-
Primary Surgeon: Subhash Ruff MD
Assisting Surgeon: None
Pre-op Diagnosis: Anal pain, perianal Crohn's
Post-op Diagnosis: Posterior anal ulcer, transsphincteric perianal fistula, perianal Crohn's
Procedure Performed: Exam under anesthesia, debridement of perianal fistula
Anesthesia Type: Sedation with local
Specimen / Cultures: None
Estimated Blood Loss: 25 mL
Complications: None
Operative Findings: Externally, evidence of chronic inflammation along the gluteal cleft with cobblestoning of the skin, as well as small bulla, but no erythema or pus; external opening identified in the left posterior perianal region about 6 cm
from the anal verge; inflammation seen within the anal canal posteriorly associated with friability and a posterior anal ulcer with some exposed internal sphincter muscle; with minimal manipulation, oozing of blood was seen; probed the external
opening which tracked towards the posterior midline, but unable to pass the probe through an internal opening; injected hydrogen peroxide and none was seen emanating from an internal opening in the posterior or lateral quadrants; no pus or erythema
was seen associated with the fistula; using a 25-gauge finder needle, the right ischiorectal space was aspirated and no pus was identified; debrided the external opening for improved drainage and copiously irrigated
--- NOTE | 2024-11-12 17:55 | OR.RPT ---
Operative Report
Operative Report
DATE OF OPERATION: 11/12/2024
SURGEON: Subhash Ruff MD
PREOPERATIVE DIAGNOSIS: Anal pain, history of perianal Crohn's
POSTOPERATIVE DIAGNOSIS: Posterior anal ulcer, transsphincteric perianal fistula, history of perianal Crohn's
OPERATION: Exam under anesthesia, debridement of perianal fistula
ASSISTANTS:
1. None
ANESTHESIA: Sedation with local
ESTIMATED BLOOD LOSS: 25 mL
FINDINGS:
1. External opening in the left posterior perianal region, about 6 cm from the anal verge; tracking towards the posterior midline; no purulent drainage or erythema; no connection with an internal opening identified
2. Posterior anal ulcer associated with inflammation, friability and easy bleeding
SPECIMENS:
1. None
DRAINS: None
COMPLICATIONS: None
INDICATIONS: The patient is a 44-year-old male with 7-year history of Crohn's disease in the colon and anus. He was first diagnosed in 2018 and required seton placements, now removed. He was noted to have worsening symptoms recently on Stelara
and the frequency was increased. However, he developed perianal pain associated with bloody drainage about 1 week ago. He was started on ciprofloxacin and Flagyl. Despite this, he spiked a fever of 102 three days ago and was instructed to go to
the emergency room. Here, his CRP was elevated to 23.[address] scan showed peritoneal stranding, most significant in the right perineum. An MRI was recommended but due to the patient's body habitus, this was unable to be completed. Therefore, the
patient was recommended to have surgery to examine for any abscess or possible fistula. The operation was discussed with the patient in detail, including the risks, benefits and alternatives. Risks described included, but not limited to bleeding,
infection, urinary retention, damage to nearby structures such as the anal sphincter, fecal incontinence, missed abscess or fistula, recurrent infection and anesthetic risks. The patient understood and agreed to proceed. The consent was signed and
placed in the chart.
PROCEDURE IN DETAIL: The patient was taken to the operating room. Sequential compression devices were placed bilaterally. The patient was placed on the operating table in supine position. Sedation was commenced without complication. The patient
was placed in lithotomy position with arms secured to the arm boards and pressure points padded. A seatbelt was placed across the chest. The buttocks were taped apart. The perineum was shaved, prepped and draped in the usual fashion. A time-out
was performed verifying the correct patient, procedure, operative site, positioning, and special equipment.
Local anesthesia used was a mixture of 60 mL of 0.25% Marcaine with epinephrine and 0.6 mg of dexamethasone. 40 mL was injected perianally at the beginning of the case. The anorectal exam was performed assessing all four quadrants of the anal canal
using Hill-Mckeon retractors in progressively increasing size. Externally, there was evidence of chronic inflammation associated with the gluteal skin. There was ridging and cobblestoning, but no erythema or drainage. There were 2-3 small
fluid-filled bulla, but these decompressed easily and had no erythema or purulence associated with them. There was an external opening noted in the left posterior perianal region, about 6 cm from the anal verge. On anoscopy, there was evidence of
chronic inflammation and scarring within the anal canal, but the anal canal was able to accommodate the medium Hill-Mckeon retractor. There was no inflammation noted in the distal rectum. There was inflammation noted in the posterior quadrant of
the anal canal associated with an ulcer. There was visible internal sphincter associated with this ulcer. There was no purulent drainage identified. Upon palpating the perianal region, there was no fluctuance noted. There were no masses.
Using Orellana fistula probes, the external opening was probed. There was clearly tracking under the skin towards the posterior midline. There was some tracking into the ischiorectal space. There was no abscess cavity and no expression of
purulence. The fistula did track towards the posterior anal ulcer. However, I was unable to pass a probe through an internal opening. I injected dilute hydrogen peroxide into the external opening to assess if there was a patent internal opening.
I did this while viewing the posterior, right and left lateral quadrants, but no hydrogen peroxide was seen emanating from an internal opening. I felt the safest option at this point was to debride the external opening of the fistula to promote
additional drainage. I discussed the case with my partner, Dr. Pond, who agreed.
Using Bovie electrocautery, I excised the external opening of the fistula tract and passed this off as specimen. Hemostasis was assured with electrocautery. Using fistula probes, I would likely debrided the fistula tract. I irrigated the fistula
with saline. I injected the remaining 20 mL of local subcutaneously around the anus and wound. Hemostasis was reassessed once more with the manish Barrera and was confirmed. Surgicel was placed in the operative site prophylactically.
At this point, the procedure was complete. All needle, sponge and instrument counts were correct. The patient tolerated the procedure well and was transferred to the recovery room in stable condition with gauze dressing in place secured with silk
tape.
DICTATED BY: Subhash Ruff MD
[2024-11-12] MEDS: TYLENOL 1000 MG PO ×2 (18:21→23:37)
[2024-11-12] MEDS: TORADOL 15 MG IV ×2 (18:21→23:37)
[2024-11-12 18:24] LABS: Glucose - Point of Care 193 mg/dl (70-99)
[2024-11-12 21:22] LABS: Glucose - Point of Care 344 mg/dl (70-99)
[2024-11-12] MEDS: NOVOLOG FLEXPEN 4 UNITS SC (21:59)
[2024-11-13 00:10] LABS: Glucose - Point of Care 269 mg/dl (70-99)
[2024-11-13] MEDS: NSS 1000 IV (01:13)
[2024-11-13] MEDS: DILAUDID 0.5 MG IV ×2 (01:13→06:40)
[2024-11-13] MEDS: ZOSYN 50 IV ×3 (02:23→14:09)
[2024-11-13 03:13] VITALS: BP 146/88
[2024-11-13] MEDS: TORADOL 15 MG IV ×2 (05:38→12:25)
[2024-11-13] MEDS: TYLENOL 1000 MG PO ×3 (05:38→17:59)
--- NOTE | 2024-11-13 06:51 | W.PN.HOSP.TC ---
Addendum entered and electronically signed by Maryam Corey MD 11/13/24 16:46:
I saw and evaluated the patient independently. I reviewed the resident�s note and agree with findings and plan as documented by Dr. Spivey.
GENERAL: well developed, well nourished, obese male in no apparent distress--seen post op
HEENT:NC/AT--moist mucus membranes
HEART: regular rate and rhythm, +S1, +S2
LUNGS : clear to auscultation bilaterally
ABDOM: soft, nontender, nondistended, + bowel sounds
EXT: no cyanosis, clubbing, or edema--with venous stasis changes
NEUROLOGIC: grossly intact
: not examined post op
Abdominal pain/fever with Lower GI bleeding (not septic)--History of Crohn's--possibly due to acute flare of Crohn's with fistula--CRP elevated but not significantly--apprec GI/CRS--change cipro/flagyl to IV zosyn--IVF, clears--CT scan with ORAL
contrast changed to MRI per GI but too large for the MRI machine--taken to OR by CRS and had posterior anal ulcer debridement of perianal fistula--having formed stools so stool studies including C. diff no longer needed--hold stelara--OK for d/c
Leukopenia--WBC�3.6--immunosuppressed from stelara--trend WBC
Elevated transaminases--Likely due to combination of fatty liver plus medication induced�Stelara/metformin--follow
type 2 DM with hyperglycemia--pt on metformin-- HGB A1C 9.2 (not prediabetes)--will need diet modification--hold metformin due to IV contrast given for CT scan--restart after 48H from IV contrast
Essential HTN -- cont norvasc and losartan
bilateral LE edema--possibly from high dose norvasc--follow
DVT proph-�SCDs
code status-Full code
Original Note:
Today's Communication/Plan
-
Discharge today
Continue oral antibiotics
Follow-up with GI
Assessment / Plan
Assessment / Plan
IMPRESSION:
44-year-old male with history of Crohn's disease presenting with bleeding and discharge per rectum.
PLAN:
#Lower GI bleeding
#History of fevers
#History of Crohn's
Due to perianal fistulizing Crohn's
S/p exploration under anesthesia�posterior anal ulcer, intersphincteric fistula, perianal Crohn's
Patient does not appear septic clinically, also sepsis criteria not met at presentation
Patient is afebrile, WBC�2.7 >> 3.6
Continue IV Zosyn today
Low residue diet
GI consulted
Check hepatitis panel, QuantiFERON, TPMT enzyme
Plan to start on Remicade as outpatient
Finish 3-more days course of ciprofloxacin and metronidazole to complete a total of 10, 2 more weeks of Flagyl.
#Elevated blood glucose
#DM
HbA1c�9.1
Will start on metformin 500 mg twice daily at discharge
Follow-up with primary for dose adjustment.
#Leukopenia
WBC�3.6
Likely related to chronic immunosuppression since diagnosis of Crohn's (was on Humira before, currently on Stelara)
Will hold Stelara for now
Will trend WBC, monitor fever curve
Will monitor clinically
If required, will consider ID consult
#Elevated transaminases
Likely due to fatty liver or medication induced�Stelara/metformin
CT evidence of hepatosplenomegaly due to fatty liver
Will monitor for now
#Essential hypertension
Continue amlodipine
Continue losartan
#Left adrenal nodule
Approximate 1.7 cm INDETERMINATE left adrenal nodule of approximately 60 Hounsfield unit density. Is there a prior outside CT to confirm stability? If not, Abdomen CT without and with intravenous contrast or Abdominal MRI recommended for more
complete evaluation as an malignant lesion cannot be excluded.
Advised to follow-up as outpatient
DVT prophylaxis�Lovenox subcu
Full code
Anticipated Discharge: Today
Subjective/Interval History
-
Date of Service: November 13, 2024
Patient does not report any nausea/vomiting, abdominal pain. Reports some pain in the anal region because of the procedure yesterday but adequately controlled with pain meds. Tolerating low residue diet well.
Objective Data
-
Labs:
Laboratory Results
11/13/24
06:35
WBC Pending
Hgb Pending
Hct Pending
Plt Count Pending
Sodium Pending
Potassium Pending
Chloride Pending
Carbon Dioxide Pending
BUN Pending
Creatinine Pending
Glucose Pending
Calcium Pending
Total Bilirubin Pending
AST Pending
ALT Pending
Alkaline Phosphatase Pending
Vital Signs:
Vital Signs
Temp Pulse Resp BP Pulse Ox
97.5 F 75 16 146/88 93
11/13/24 03:13 11/13/24 03:13 11/13/24 03:13 11/13/24 03:13 11/13/24 03:13
I&O
11/11/24 11/12/24 11/13/24
06:59 06:59 06:59
Intake Total 360 / 360 2840 / 2840
Output Total 1525 / 1525
Balance 360 / 360 1315 / 1315
Review of Systems
-
All other systems: Reviewed and negative (Except as mentioned above)
Physical Exam
-
General: Morbidly Obese
HEENT: Normocephalic and Atraumatic
Respiratory: Clear to Auscultation
Cardiac: Regular Rhythm and S1/S2
GI: Soft, Nontender, Nondistended and Normal Bowel Sounds
Skin: Warm and Dry
Neuro: Awake, Alert, Oriented and AO x 3
Psych: Calm
[2024-11-13 07:00] VITALS: BP 139/84
[2024-11-13 07:00] LABS: Hematocrit 39.8 % (39.0-52.0); Hemoglobin 13.5 g/dL (13.0-18.0); Mean Corp Hgb Conc. 33.9 g/dL (33.0-37.0); Mean Corpuscular Hgb 29.2 pg (27.0-31.0); Mean Platelet Volume 9.5 fL (7.4-10.4); Platelet Count 140 10^3/uL (130-400); Red Blood Cell Count 4.63 10^6/uL (4.70-6.10); Red Cell Dist. Width 12.8 % (11.5-14.5); White Blood Cell Count 3.6 10^3/uL (4.8-10.8)
[2024-11-13 07:14] LABS: ALT (SGPT) 105 U/L (0-50); AST (SGOT) 87 U/L (17-59); Albumin 3.4 g/dl (3.5-5.0); Alkaline Phosphatase 90 U/L (38-126); Blood Urea Nitrogen 10 mg/dl (9-20); Calcium 8.6 mg/dl (8.4-10.2); Carbon Dioxide 23 mmol/L (22-30); Chloride 108 mmol/L (98-107); Direct Bilirubin 0.5 mg/dl (0.0-0.4); Estimated Creatinine Clearance > 125 ml/min; Glucose 266 mg/dl (70-99); Sodium 136 mmol/L (135-145); Total Bilirubin 0.6 mg/dl (0.2-1.3); Total Protein 6.5 g/dl (6.3-8.2); eGFR > 60.00
[2024-11-13 07:56] LABS: Glucose - Point of Care 246 mg/dl (70-99)
--- NOTE | 2024-11-13 08:44 | W.PN.GI.CBS2 ---
Addendum entered and electronically signed by Teresa Thomas MD 11/13/24 10:27:
incidental MASLD follow up outpatient
Original Note:
Today's Communication / Plan
-
antibiotics, discharge, outpatient gi follow up
Assessment / Plan
-
44-year-old male distant history of diverticulitis with colon resection and diverting ileostomy in 2008 with reversal and ultimately diagnosed with Crohn's in 2018 with fistulizing disease s/p setons 2018; previously on humira now on stelara.
Admitted with drainage, bleeding, fevers, no abd pain/diarrhea.
Underwent EUA yesterday. Unable to have MRI due to body habitus.
Has increased bleeding after EUA but before he was in hospital had decreased bleeding with antibiotics especially flagyl.
Recommendations:
- Complete 10 day course of cipro and flagyl then do additional 14 days of flagyl 500 bid (he felt flagyl helped more with symptoms); discussed avoiding EtOH, metallic taste if any issues should call office
- Hold steroids for now however if not responding or worsening symptoms may need outpatient
- Pt agreeable to IFX will reach out to Dr. Nguyen re: starting outpatient - quant, hep b, tpmt ordered, goal level 10, with history of antibodies either needs close monitoring of levels or addition of IMM for 6-12 months; of note data supports
higher rates of fistula closer when combined with cipro
- T/c Cscope outpatient to get baseline prior to IFX
- T/c MR pelvis at [facility] facility that can be done with his body habitus vs EUS in future if needed
D/w CRS and primary team and message sent to Dr. Nguyen
Plan discharge today
Subjective
Subjective
Date of Service: November 13, 2024
Increased bleeding after EUA
No fevers
Objective
Data Reviewed
Laboratory Data:
Laboratory Results
11/13/24 06:35
11/13/24 06:35
Laboratory Results
Total Bilirubin 0.6 mg/dl (0.2-1.3) 11/13/24 06:35
AST 87 U/L (17-59) H 11/13/24 06:35
ALT 105 U/L (0-50) H 11/13/24 06:35
Alkaline Phosphatase 90 U/L (38-126) 11/13/24 06:35
Lipase 61 U/L (23-300) 11/11/24 13:23
Vital Signs and I&O:
Vital Signs
Temp Pulse Resp BP Pulse Ox
97.5 F 65 20 139/84 94
11/13/24 07:00 11/13/24 07:00 11/13/24 07:00 11/13/24 07:00 11/13/24 07:00
I&O
11/12/24 11/13/24 11/14/24
06:59 06:59 06:59
Intake Total 360 / 360 2840 / 2840
Output Total 1525 / 1525
Balance 360 / 360 1315 / 1315
Physical Exam
Physical Exam
GI: Non Distended and Non Tender
[2024-11-13] MEDS: NOVOLOG FLEXPEN-MODERATE RESISTANCE 3 UNITS SC (08:51)
[2024-11-13] MEDS: NORVASC 10 MG PO (08:52)
[2024-11-13] MEDS: COZAAR 25 MG PO (08:52)
--- NOTE | 2024-11-13 10:39 | W.PN.CRS1 ---
Today's Communication / Plan
-
local wound care
sitz baths
okay for d/c from our persepctive
Assessment/Plan
-
POD#1 Exam under anesthesia, debridement of perianal fistula
WBC 3.6, Hgb 13.5
Vitals normal
-Continue diet
-OOB as tolerated
-Local wound care
-Sitz baths twice a day for a week
-Pain control
-Antibiotics/biologics per GI
-Okay fo d/c from our perspective. Will need follow up in the office with Dr. Ruff in a few weeks. Follow up with GI.
Subjective Data
Subjective Data
Date of Service: November 13, 2024
Patient states he feels well. He has no complaints. He is very hungry. He has been having bowel movements without difficulty.
Objective Data
-
Vital Signs
Temp Pulse Resp BP Pulse Ox
97.5 F 65 20 139/84 94
11/13/24 07:00 11/13/24 07:00 11/13/24 07:00 11/13/24 07:00 11/13/24 07:00
Intake & Output
11/12/24 11/13/24 11/14/24
06:59 06:59 06:59
Intake Total 360 / 360 2840 / 2840
Output Total 1525 / 1525
Balance 360 / 360 1315 / 1315
Intake:
Oral fluids 360 / 360 1440 / 1440
IV fluids (Total) 1300 / 1300
Normosal 200 / 200
IV piggybacks 100 / 100
Output:
Urine, Voided 1524 / 1525
Other:
Number of approximated MODERATE 2 1
amounts of urine
Number of approximated LARGE 2
amounts of urine
Number of unmeasured liquid
stools
Rectum 1
Lab Results
11/13/24 06:35
11/13/24 06:35
Physical Exam
-
General: No Acute Distress and AOx3
Abdomen: Soft, Non Distended and Non Tender
Wound: Dressing Changed
Incision: Clear, Dry, Intact
[2024-11-13 12:11] LABS: Glucose - Point of Care 260 mg/dl (70-99)
[2024-11-13] MEDS: NOVOLOG FLEXPEN-MODERATE RESISTANCE 5 UNITS SC (12:24)
[2024-11-13 15:10] VITALS: BP 153/88
--- NOTE | 2024-11-13 16:00 | PTCARENOTE ---
Patient ambulating in room with a steady gait. Patient tolerating Low Residue diet. Low residue diet and sitz bath instructions reviewed with patient and spouse.
--- NOTE | 2024-11-13 16:16 | CM ---
Patient seen at bedside with physician on [address] [place] [address]. Patient states he lives with and daughter, SANGITA. Patient home is a 3 story home with no DME. Patient PCP is Dr. Perez and he uses the [facility] on [facility]. Patient plan
is for discharge home with no needs. CM will continue to follow for discharge planning needs.
Plan; home with no needs
[2024-11-13] MEDS: NOVOLOG FLEXPEN-MODERATE RESISTANCE SC (17:41)
[2024-11-13] MEDS: TORADOL IV (17:42)
[2024-11-13] MEDS: ULTRAM 100 MG PO (17:59)
--- NOTE | 2024-11-13 18:30 | PTCARENOTE ---
Patient waited for over 2 hours for Ultram prescription. Patient lives an hour away and needed to get home to his daughter. Resident will send Ultram script to pharmacy electronically. Patient left without Ultram on printed discharge instructions.
Patient and spouse verbalized last dose of Ultram was given at 1800.
[2024-11-13 20:11] LABS: Hepatitis B Surface Antigen Negative (Negative)
[2024-11-13 20:30] LABS: Hepatitis B Core Ab, Total Negative (Negative); Hepatitis B Surface Antibody Negative
--- NOTE | 2024-11-13 20:55 | W.DCSUMMARY ---
Addendum entered and electronically signed by Maryam Corey MD 11/15/24 07:03:
Read, reviewed, and agree. See same day progress note for additional details. Time spent coordinating care, DC planning, review of DC plan of care with resident, transition of care, review of records in EMR, med rec, consults, notes, d/w
consultants, nursing, family, and CM = 31 minutes
Original Note:
Discharge Summary
Discharge Data
Date of Admission: 11/11/24
Date of Discharge: 11/13/24
-
Pending Results: Yes
Additional Pending Results:
hepatitis panel, Quantiferon TB
Hospital Course
Discharging Physician : Dr. Corey, Dr. Yu
Disposition : Home
Principal Discharge diagnosis : Perianal fistulizing Crohn's disease
Hospital Course : 44-year-old male with past medical history of hypertension, prediabetes, Crohn's (diagnosed in 2018) with 2 perianal surgeries for fistulas, bowel resection for diverticulitis presents with bleeding per rectum and rectal pain,
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 Patient reports that he was having some purulent drainage from the anus and bleeding, abdominal pain since 6 days and he saw Dr. Rivera as outpatient, who started him on metronidazole and ciprofloxacin. Bleeding and
pain has improved, but the patient had fevers in the past 2 days, associated with intermittent nausea but no vomiting. Patient has been taking Tylenol for fevers. In ER - WBC 2.7, hbg 13.8, hct 41.2, platelets 130, glucose 289, bili 0.7, AST 132,
ALT 112, alk phos 81, albumin 3.4, CRP 23.1, and moderate bacteria on UA. Ct was completed with [facility] with fatty liver, non obst renal calculus, Unremarkable appendix. Patient was started on IVFs and IV Zosyn, NPO, pain control and GI consulted.
Plan on doing MRI but due to body habitus, patient has undergone exploration under anesthesia, with debridement of perianal fistula. Post-op Diagnosis: Posterior anal ulcer, transsphincteric perianal fistula, perianal Crohn's. Patient started on
low residue diet, tolerating well. GI plan on starting him on Remicade outpatient, ordered for hepatitis panel and quantiferon gold. Patient has clinically improved, white count improved, and hemodynamically stable to be discharged home. Patient had
elevated BG, Hba1c- 9.1, was started on Metformin 500 mg, BID at discharge. Also advised to continue on 3 more days of of Ciprofloxacin 500 mg, BID, Flagyl 500 mg, TID. Later continue with Flagyl 500 mg, BID, 14 days. F/U with GI outpatient. Also
advised to f/u with primary for adrenal nodule evaluation.
Important imaging findings :
Hepatosplenomegaly with diffuse fatty liver.
Small nonobstructing left renal calculus. Symmetric renal excretion.
Unremarkable appendix. Limited evaluation of intestinal tract, particularly in light of patient history of Crohn's disease, without oral contrast. No intestinal obstruction, free air or gross focal area intestinal inflammatory changes. On the basis
of this study, acute inflammatory process of the intestinal tract cannot be excluded.
Approximate 1.7 cm INDETERMINATE left adrenal nodule of approximately 60 Hounsfield unit density. Is there a prior outside CT to confirm stability? If not, Abdomen CT without and with intravenous contrast or Abdominal MRI recommended for more
complete evaluation as an malignant lesion cannot be excluded.
Discharge Plan
-
Patient Disposition: Home (Routine Discharge)
Discharge Diagnosis/Procedures: Perianal fistulizing Crohn's disease
DM type II
Leukopenia
Essential hypertension
Diet: Low Residue
Activity: No restrictions
Driving Restrictions: As prior to admission
Bathing Restrictions: None
Wound Care: Sitz baths twice a day for a week, warm water, 10 minutes at a time.
Change gauze daily and as needed.
Stool softeners if using narcotics.
Instructions: How to take a sitz bath
Referrals:
Teresa Thomas MD [Active, Gastroenterology] - in two to three weeks
Subhash Ruff MD [Active, ColoRectal] - in two weeks
Rodger Perez MD [Family Provider, Internal Medicine] - in less than 1 week
Additional Discharge Medication Instructions: Take ciprofloxacin 500 mg, twice daily for 3 more days
Take Flagyl 500 mg 3 times daily for 3 more days
From then on take Flagyl 500 mg twice daily for 14 days
Prescriptions:
New
metformin 500 mg tablet
500 mg PO BID 30 Days Qty: 60 0RF
metronidazole 500 mg tablet
500 mg PO BID 14 Days Qty: 28 0RF
ibuprofen 600 mg tablet
600 mg PO Q8H PRN (Reason: Pain) Qty: 20 0RF
tramadol 25 mg tablet
25 mg PO Q6H PRN (Reason: severe pain) Qty: 20 0RF
Rx Instructions:
stop if develops hives/itching
Continued
amlodipine 10 mg Tablet
10 mg PO DAILY
acetaminophen [Tylenol] 325 mg Tablet
650 mg PO TIDPRN PRN (Reason: mild pain/fever)
metronidazole 500 mg Tablet
500 mg PO TID
Patient Comments:
11/11/2024, filled on 11/07/2024 and instructed to take 1 tab TID for 10 days.
ciprofloxacin HCl 500 mg Tablet
500 mg PO Q12H
Patient Comments:
11/11/2024, filled on 11/04/2024 and instructed to take 1 tab Q12H for 10 days.
losartan 25 mg Tablet
25 mg PO DAILY
Held
ustekinumab [Stelara] 90 mg/mL Syringe
90 mg SC Q4W
Hold Instructions: Resume on 12/03/24. resume after seeing GI
Patient Comments:
11/11/2024, next dose due on 11/19/2024 per pt.
Discharge Orders:
Discharge Patient (As Directed); Ordered 11/13/24
Ordered By: Gigi Spivey
Discharge Date and Time
Discharge Date/Time: 11/13/24 18:32
Print Language: MOSOT[place]
== END 2024-11-13 18:32 | disposition home or self-care (01) | DRG 386 ==
LOC: 2 NORTH 19:09
PROVIDERS: Nurse Practitioner Adult Health; Physician Assistant; Student in an Organized Health Care Education/Training Program; ADMITTING PHYSICIAN Internal Medicine; CONSULT PHYSICIAN Internal Medicine Gastroenterology; EMERGENCY PHYSICIAN Emergency Medicine; FAMILY PHYSICIAN Internal Medicine; OTHER PHYSICIAN Surgery
PROC: 0HB9XZZ Excision of Perineum Skin, External Approach (ICD-10-PCS; 2024-11-12)
DX: K50.113 Crohn's disease of large intestine with fistula (principal); D84.821 Immunodeficiency due to drugs; K61.0 Anal abscess; Z68.42 Body mass index [BMI] 45.0-49.9, adult; Z11.52 Encounter for screening for COVID-19; K50.111 Crohn's disease of large intestine with rectal bleeding; I10 Essential (primary) hypertension; K60.30 Anal fistula, unspecified; Z79.620 Long term (current) use of immunosuppressive biologic; E11.65 Type 2 diabetes mellitus with hyperglycemia; E66.01 Morbid (severe) obesity due to excess calories; D72.819 Decreased white blood cell count, unspecified; Z79.899 Other long term (current) drug therapy
CPT/HCPCS: 88304; 74177; 80053; 81003; 81015; 82248; 82962; 83036; 83605; 83690; 83993; 85025; 85027; 86140; 86480; 86704; 86706; 87040; 87045; 87046; 87070; 87086; 87328; 87329; 87340; 87427; 87811; 89055; 96374; 96376; 99285; Q9967

== ENCOUNTER → 2024-12-16 07:29 | Outpatient (REF) | payer BC, SELFPAY | LOC: RAD 07:29 | PROVIDERS: ATTENDING PHYSICIAN Internal Medicine; REFERRING PHYSICIAN Internal Medicine Gastroenterology | DX: E27.9 Disorder of adrenal gland, unspecified (principal); K50.113 Crohn's disease of large intestine with fistula | CPT/HCPCS: 71046; 74178; Q9967 ==